=== PATIENT | male | born 1985 | race Caucasian/White ===

== ENCOUNTER 2016-06-25 22:19 | Emergency (ER) | payer SELFPAY ==
[2016-06-25 22:28] VITALS: BP 131/85; PULSE 92; TEMP 97.5; BMI 27.6
== END 2016-06-26 01:08 | disposition left against medical advice (07) ==
LOC: JER 22:19
DX: Z53.21 Procedure and treatment not carried out due to patient leaving prior to being seen by health care provider (principal)
CPT/HCPCS: 99281-25